=== PATIENT | female | born 1965 | race Two or more races ===

== ENCOUNTER 2018-01-21 13:10 | Day surgery (SDC) | payer OTHER | END 2018-01-21 17:10 | disposition HB | LOC: AMB-ENDOS 13:10 | DX: D12.4 Benign neoplasm of descending colon (principal); Z86.010 Personal history of colon polyps ==

== ENCOUNTER 2018-03-06 07:00 | Day surgery (SDC) | payer OTHER ==
[~2018-03-06] VITALS: Ht 154.9 cm; Wt 71.7 kg
[~2018-03-06 07:00] MED LIST: BUSPAR PO; LIPITOR40 MG PO; PRILOSEC OTC20 MG PO; PROSAC PO; SYNTH PO; TOPROL XL50 M1 PO; TRAMADOL HCL7.5 GM
[2018-03-06] MEDS ORDERED: BUSPIRONE HCL15 MG PO (09:41)
[2018-03-06] MEDS ORDERED: PROZAC40 MG PO (09:41)
[2018-03-06] MEDS ORDERED: SYNTHROID175 MCG PO (09:42)
[2018-03-07] MEDS ORDERED: NEURONTIN300 MG PO (12:31)
[2018-03-07] MEDS ORDERED: OXYC1TAB9 PO (12:31)
[2018-03-07] MEDS ORDERED: DIBUCAINE30 GM TOP (12:31)
[2018-03-07] MEDS ORDERED: BACTRIM DS TAB1 EACH PO (12:32)
== END 2018-03-07 09:00 | disposition home or self-care (01) ==
LOC: RECOVERY 07:00 → CIR.AMB 07:00 → O/R 07:00 → RECOVERY 08:45 → EDSTATUS 08:45 → O/R 11:46 → SURG 11:46 → RECOVERY 14:11 → CIR.AMB 03-07 09:00 → O/R 03-07 14:44 → SURG 03-07 14:44
DX: N81.6 Rectocele (principal); R15.9 Full incontinence of feces; E03.8 Other specified hypothyroidism; I10 Essential (primary) hypertension; F41.8 Other specified anxiety disorders

== ENCOUNTER 2018-09-12 08:31 | Day surgery (SDC) | payer OTHER ==
[~2018-09-12 08:31] MED LIST changes: +BACTRIM DS TAB1 EACH PO; +BUSPIRONE HCL15 MG PO; +DIBUCAINE30 GM TOP; +NEURONTIN300 MG PO; +OXYC1TAB9 PO; +PROZAC40 MG PO; +SYNTHROID175 MCG PO
[2018-09-12] MEDS ORDERED: POLY119PG PO (13:09)
== END 2018-09-12 14:40 | disposition home or self-care (01) ==
LOC: AMB-ENDOS 08:31
DX: N81.6 Rectocele (principal)